=== PATIENT | male | born 1975 | race Two or more races ===

== ENCOUNTER 2023-12-17 19:02 | Emergency (ER) | payer MEDICAID, OTHER ==
[~2023-12-17] VITALS: Ht 162.6 cm; Wt 50.3 kg
[2023-12-17 19:06] VITALS: TEMP 98.4
[2023-12-17] MEDS ORDERED: ASPIRIN 81 MG TAB.CHEW ONE (19:46)
[2023-12-17] MEDS ORDERED: ONDANSETRON HCL/PF 4 MG/2 ML VIAL ONE (19:48)
[2023-12-17] MEDS: ASPIRIN 81 MG TAB.CHEW PO ONE (19:48)
[2023-12-17] MEDS ORDERED: MORPHINE SULFATE INJ 4 MG/ML DISP.SYRIN ONE (19:48)
[2023-12-17] MEDS: ONDANSETRON HCL/PF 4 MG/2 ML VIAL IV ONE (19:50)
[2023-12-17 19:52] LABS: BASOPHILS % (AUTO) 0.8 % (0.0-2.0); EOSINOPHILS # (AUTO) 0.2 K/uL (0.0-0.7); EOSINOPHILS % (AUTO) 5.3 % (0.0-6.0); HEMATOCRIT 36 % (39-51); HEMOGLOBIN 12.2 g/dL (13.5-17.5); LYMPHOCYTES # (AUTO) 1.5 K/uL (0.8-4.8); LYMPHOCYTES % (AUTO) 35.8 % (20.0-44.0); MEAN CORPUSCULAR HEMOGLOBIN 31 PG (26.0-33.0); MEAN CORPUSCULAR HGB CONC 34 g/dl (31.0-36.0); MEAN CORPUSCULAR VOLUME 89 fL (80-96); MONOCYTES # (AUTO) 0.3 K/uL (0.1-1.30); MONOCYTES % (AUTO) 8.3 % (2.0-12.0); NEUTROPHILS # (AUTO) 2.1 K/uL (1.8-8.9); NEUTROPHILS % (AUTO) 49.8 % (43.0-81.0); PLATELET COUNT (AUTO) 188 K/uL (150-450); RED BLOOD CELL COUNT(AUTO) 3.99 MIL/uL (4.5-6.0); RED CELL DISTRIBUTION WIDTH 15.8 % (11.5-15.0); WHITE BLOOD COUNT (AUTO) 4.2 K/uL (4.3-11.0)
[2023-12-17] MEDS: MORPHINE SULFATE INJ 2 MG/ML DISP.SYRIN IV ONE (19:58)
[2023-12-17 20:55] LABS: CALCIUM, SERUM 8.8 mg/dL (8.5-10.1); CARBON DIOXIDE 26 mmol/L (21-32); CHLORIDE 103 mmol/L (98-107); CREATININE 1.2 mg/dL (0.6-1.3); GLUCOSE 145 mg/dL (74-106); POTASSIUM 4.5 mmol/L (3.5-5.1); SODIUM SERUM 139 mmol/L (136-145); UREA NITROGEN, BLOOD 21 mg/dL (7-18)
[2023-12-17 21:00] VITALS: BP 120/68; O2SAT 98
[2023-12-17 21:10] LABS: ALANINE AMINOTRANSFERASE 66 U/L (12-78); ALBUMIN 2.7 g/dL (3.4-5.0); ALKALINE PHOSPHATASE 48 U/L (46-116); ASPARTATE AMINOTRANSFERASE 37 U/L (15-37); BILIRUBIN,DIRECT 0.1 mg/dL (0.0-0.2); BILIRUBIN,TOTAL 0.2 mg/dL (0.2-1.0); NT-PRO BNP 112 pg/mL (0-125); TOTAL PROTEIN, SERUM 6.2 g/dL (6.4-8.2)
[2023-12-17] MEDS ORDERED: HALOPERIDOL LACTATE INJ 5 MG/ML VIAL ONE (21:25)
[2023-12-17] MEDS: HALOPERIDOL LACTATE INJ 5 MG/ML VIAL IM ONE (21:29)
== END 2023-12-18 02:21 ==
LOC: ER 19:16
DX: R07.89 Other chest pain (principal); F32.A Depression, unspecified; F20.9 Schizophrenia, unspecified; E03.9 Hypothyroidism, unspecified; D64.9 Anemia, unspecified; Z88.0 Allergy status to penicillin
CPT/HCPCS: 99285; 96374; 71045; 96375; 93005 ×3; 85025; 80048; 80076; 36415; 84484 ×2; 83880; 96372; J1630; J2270; J2405

== ENCOUNTER 2024-02-02 14:17 | Inpatient (IN) | payer MEDICAID ==
[~2024-02-02] VITALS: Ht 157.5 cm; Wt 74.8 kg
[2024-02-02 14:48] LABS: BASOPHILS # (AUTO) 0.1 K/uL (0.0-0.2); EOSINOPHILS # (AUTO) 0.2 K/uL (0.0-0.7); EOSINOPHILS % (AUTO) 3.1 % (0.0-6.0); HEMATOCRIT 38 % (39-51); HEMOGLOBIN 12.8 g/dL (13.5-17.5); LYMPHOCYTES % (AUTO) 19.9 % (20.0-44.0); MEAN CORPUSCULAR HEMOGLOBIN 30 PG (26.0-33.0); MEAN CORPUSCULAR HGB CONC 34 g/dl (31.0-36.0); MEAN CORPUSCULAR VOLUME 89 fL (80-96); MONOCYTES # (AUTO) 0.3 K/uL (0.1-1.30); MONOCYTES % (AUTO) 5.6 % (2.0-12.0); NEUTROPHILS # (AUTO) 3.6 K/uL (1.8-8.9); NEUTROPHILS % (AUTO) 70.4 % (43.0-81.0); PLATELET COUNT (AUTO) 178 K/uL (150-450); RED BLOOD CELL COUNT(AUTO) 4.29 MIL/uL (4.5-6.0); RED CELL DISTRIBUTION WIDTH 15.1 % (11.5-15.0); WHITE BLOOD COUNT (AUTO) 5.1 K/uL (4.3-11.0)
[2024-02-02 15:01] LABS: CALCIUM, SERUM 8.8 mg/dL (8.5-10.1); CARBON DIOXIDE 30 mmol/L (21-32); CHLORIDE 103 mmol/L (98-107); CREATININE 1.2 mg/dL (0.6-1.3); GLUCOSE 176 mg/dL (74-106); POTASSIUM 4.8 mmol/L (3.5-5.1); SODIUM SERUM 136 mmol/L (136-145); UREA NITROGEN, BLOOD 19 mg/dL (7-18)
[2024-02-02 15:16] LABS: ALANINE AMINOTRANSFERASE 31 U/L (12-78); ALBUMIN 3.2 g/dL (3.4-5.0); ALKALINE PHOSPHATASE 41 U/L (46-116); ASPARTATE AMINOTRANSFERASE 33 U/L (15-37); BILIRUBIN,DIRECT 0.1 mg/dL (0.0-0.2); BILIRUBIN,TOTAL 0.2 mg/dL (0.2-1.0); NT-PRO BNP 136 pg/mL (0-125); TOTAL PROTEIN, SERUM 6.9 g/dL (6.4-8.2)
[2024-02-02] MEDS ORDERED: CLOP75TA15 PO (15:56)
[2024-02-02] MEDS ORDERED: QUET200T PO (15:56)
[2024-02-02] MEDS ORDERED: DIVA-78 PO (15:56)
[2024-02-02] MEDS ORDERED: ATOR20TA PO (15:56)
[2024-02-02] MEDS ORDERED: CLON2TAB PO (15:56)
[2024-02-02] MEDS ORDERED: METF-441 PO (15:56)
[2024-02-02] MEDS ORDERED: HYDR25CA PO (15:56)
[2024-02-02] MEDS ORDERED: LEVO25TA7 PO (15:56)
[2024-02-02] MEDS ORDERED: SERT100T PO (15:56)
[2024-02-02] MEDS ORDERED: METO25TA4 PO (15:56)
[2024-02-02] MEDS ORDERED: ASPI-1169 PO (15:56)
[2024-02-02 22:00] VITALS: BP 113/62; TEMP 98.2; O2SAT 98
[2024-02-02] MEDS ORDERED: ONDANSETRON HCL/PF 4 MG/2 ML VIAL IVP PRN (23:30)
[2024-02-02] MEDS ORDERED: DEXTROSE 50%-WATER 50 ML DISP.SYRIN IV PRN (23:30)
[2024-02-02] MEDS ORDERED: hydrALAZINE HCL IV 20 MG VIAL IV PRN (23:30)
[2024-02-02] MEDS ORDERED: ACETAMINOPHEN 325 MG TABLET PO PRN (23:30)
[2024-02-02] MEDS ORDERED: MORPHINE SULFATE INJ 2 MG/ML DISP.SYRIN IV PRN (23:30)
[2024-02-03 00:08] VITALS: BP 94/62; TEMP 98.2; O2SAT 100
[2024-02-03] MEDS: TRAZODONE 50 MG TABLET PO SCH (01:01)
[2024-02-03 04:05] VITALS: BP 98/60; TEMP 98.4; O2SAT 97
[2024-02-03] MEDS: INSULIN REGULAR, HUMAN 100 UNIT/ML 3 ML VIAL SQ PRN (06:30)
[2024-02-03] MEDS: BLOOD SUGAR DIAGNOSTIC 1 EACH STRIP IN SCH (06:30)
[2024-02-03 07:44] LABS: BASOPHILS % (AUTO) 0.6 % (0.0-2.0); EOSINOPHILS # (AUTO) 0.2 K/uL (0.0-0.7); EOSINOPHILS % (AUTO) 5.8 % (0.0-6.0); HEMATOCRIT 38 % (39-51); HEMOGLOBIN 12.7 g/dL (13.5-17.5); LYMPHOCYTES # (AUTO) 1.1 K/uL (0.8-4.8); LYMPHOCYTES % (AUTO) 27.2 % (20.0-44.0); MEAN CORPUSCULAR HEMOGLOBIN 30 PG (26.0-33.0); MEAN CORPUSCULAR HGB CONC 33 g/dl (31.0-36.0); MEAN CORPUSCULAR VOLUME 90 fL (80-96); MONOCYTES # (AUTO) 0.3 K/uL (0.1-1.30); MONOCYTES % (AUTO) 8.2 % (2.0-12.0); NEUTROPHILS # (AUTO) 2.4 K/uL (1.8-8.9); NEUTROPHILS % (AUTO) 58.2 % (43.0-81.0); PLATELET COUNT (AUTO) 180 K/uL (150-450); RED BLOOD CELL COUNT(AUTO) 4.22 MIL/uL (4.5-6.0); RED CELL DISTRIBUTION WIDTH 15.6 % (11.5-15.0); WHITE BLOOD COUNT (AUTO) 4.2 K/uL (4.3-11.0)
[2024-02-03 08:00] VITALS: BP 96/57; TEMP 98.1; O2SAT 97
[2024-02-03 08:13] LABS: ALBUMIN 2.9 g/dL (3.4-5.0); BILIRUBIN,TOTAL 0.3 mg/dL (0.2-1.0); CALCIUM, SERUM 8.7 mg/dL (8.5-10.1); CREATININE 1.1 mg/dL (0.6-1.3); PHOSPHORUS 3.7 mg/dL (2.5-4.9); POTASSIUM 4.9 mmol/L (3.5-5.1); TOTAL PROTEIN, SERUM 6.7 g/dL (6.4-8.2)
[2024-02-03] MEDS ORDERED: CLOPIDOGREL BISULFATE 75 MG TABLET PO SCH (09:00)
[2024-02-03 09:03] LABS: THYROID STIMULATING HORMONE 3.69 uIU/mL (0.358-3.74)
[2024-02-03] MEDS ORDERED: hydrOXYzine PAMOATE 25 MG CAPSULE PO PRN ×2 (11:30)
[2024-02-03 12:00] VITALS: BP 114/71; TEMP 97.6; O2SAT 96
[2024-02-03] MEDS: METOPROLOL SUCCINATE 25 MG TAB.SR.24H PO SCH (13:00)
[2024-02-03] MEDS: QUETIAPINE FUMARATE 100 MG TABLET PO SCH ×2 (13:36→22:00)
[2024-02-03] MEDS: clonazePAM 1 MG TABLET PO SCH (13:36)
[2024-02-03] MEDS: DIVALPROEX SODIUM 500 MG TABLET.DR PO SCH (13:37)
[2024-02-03] MEDS: METFORMIN 850 MG TABLET PO SCH (13:41)
[2024-02-03] MEDS: ASPIRIN EC 81 MG TABLET.DR PO SCH (14:33)
[2024-02-03] MEDS: HEPARIN SODIUM, PORCINE 5000 UNITS/1 ML VIAL SQ SCH (14:34)
[2024-02-03 16:00] VITALS: BP 92/57; TEMP 98.6; O2SAT 95
[2024-02-03] MEDS: CLOPIDOGREL BISULFATE 75 MG TABLET PO SCH (17:03)
[2024-02-03 20:00] VITALS: BP 98/54; TEMP 98.2; O2SAT 96
[2024-02-03] MEDS: ATORVASTATIN 10 MG TABLET PO SCH (21:30)
[2024-02-03] MEDS ORDERED: ATORVASTATIN 40 MG TABLET PO SCH (22:00)
[2024-02-04] VITALS: BP 105/64; TEMP 97.4; O2SAT 96
[2024-02-04 04:00] VITALS: BP 102/65; TEMP 97.1; O2SAT 96
[2024-02-04 08:00] VITALS: BP 91/59; TEMP 98.2; O2SAT 97
[2024-02-04] MEDS ORDERED: CLOPIDOGREL BISULFATE 75 MG TABLET PO SCH (09:00)
[2024-02-04] MEDS: SERTRALINE HCL 50 MG TABLET PO SCH (09:02)
[2024-02-04] MEDS: LEVOTHYROXINE SODIUM 25 MCG TABLET PO SCH (09:02)
[2024-02-04] MEDS: ASPIRIN 81 MG TAB.CHEW PO SCH (09:04)
[2024-02-04 16:00] VITALS: BP 101/67; TEMP 97.9; O2SAT 97
[2024-02-04 20:00] VITALS: BP 105/62; TEMP 97.5; O2SAT 100
[2024-02-05 14:06] LABS: AMPHETAMINE, URINE NEGATIVE (NEGATIVE); BARBITURATE, URINE NEGATIVE (NEGATIVE); CANNABINOID, URINE NEGATIVE (NEGATIVE); COCCAINE, URINE NEGATIVE (NEGATIVE); OPIATE, URINE NEGATIVE (NEGATIVE); PHENCYCLIDINE SCREEN,URINE NEGATIVE (NEGATIVE)
[2024-02-05 14:08] LABS: BENZODIAZEPINE, URINE POSITIVE (NEGATIVE)
[2024-02-05] MEDS ORDERED: methylPREDNISolone SOD SUCC 125 MG/2ML VIAL IV ONE (15:00)
[2024-02-05] MEDS ORDERED: diphenhydrAMINE HCL 50 MG CAPSULE PO ONE (15:00)
[2024-02-05 16:00] VITALS: BP 122/70; TEMP 98; O2SAT 100
[2024-02-05 16:31] VITALS: BP 122/70
== END 2024-02-05 20:20 | DRG 198 ==
LOC: ER 14:41 → TELE 21:28 → MED 02-04 10:06
PROVIDERS: ADMIT Internal Medicine; ATTEND Internal Medicine
DX: I25.10 Atherosclerotic heart disease of native coronary artery without angina pectoris (principal); F25.0 Schizoaffective disorder, bipolar type; Z87.891 Personal history of nicotine dependence; E11.9 Type 2 diabetes mellitus without complications; E78.5 Hyperlipidemia, unspecified; E03.9 Hypothyroidism, unspecified; I10 Essential (primary) hypertension; Z79.84 Long term (current) use of oral hypoglycemic drugs; Z88.0 Allergy status to penicillin; Z95.5 Presence of coronary angioplasty implant and graft; Z20.822 Contact with and (suspected) exposure to COVID-19; Z79.899 Other long term (current) drug therapy
CPT/HCPCS: 36415; 71045-TC; 80048-TC; 80053-TC; 80061-TC; 80076-TC; 82962-TC; 83735-TC; 83880; 84100-TC; 84439-TC; 84443-TC; 84484-TC; 85025-TC; 87081-TC; 93307-TC; G0378; J1644; J1815